=== PATIENT | male | born 1995 ===

== ENCOUNTER 2020-10-25 22:45 | Emergency (ER) | payer OTHER ==
[2020-10-25 23:57] LABS: BILIRUBIN NEGATIVE (NEGATIVE); BLOOD 2+ Ery/uL (NEGATIVE); CLARITY CLEAR (CLEAR); COLOR YELLOW (YELLOW); GLUCOSE (U) NORMAL (NORMAL); LEUKOCYTES NEGATIVE Leu/uL (NEGATIVE); NITRITE NEGATIVE (NEGATIVE); PROTEIN NEGATIVE (NEGATIVE); pH 7.5 (5.0-9.0)
[2020-10-26 00:04] LABS: BACTERIA TRACE; SQUAMOUS EPITHELIAL CELLS RARE; URINARY RBC 20-50
[2020-10-26] MEDS ORDERED: NORCO 5-325 TA1 EACH PO (00:52)
== END 2020-10-26 01:08 | disposition home or self-care (01) ==
LOC: FER 22:45
PROVIDERS: Emergency Medicine
DX: N13.2 Hydronephrosis with renal and ureteral calculous obstruction (principal); Z79.899 Other long term (current) drug therapy
CPT/HCPCS: 81001; J1885; J2270; J2405; J7030